=== PATIENT | female | born 1995 | race Caucasian/White ===

== ENCOUNTER 2016-12-22 02:36 | Emergency (ER) | payer MEDICAID ==
[2016-12-22] MEDS ORDERED: NACL 0.9% 1000 ML 1,000 ML IV ONE (03:46)
[2016-12-22 04:41] LABS: Alanine Aminotransferase 9 units/L (7-56); Albumin 4.3 g/dL (3.9-5); Albumin/Globulin Ratio 1.3 %; Alkaline Phosphatase 79 units/L (35-129); Anion Gap 15 mmol/L; Bilirubin,Total < 0.20 mg/dL (0.1-1.2); Blood Urea Nitrogen 12 mg/dL (7-17); Calcium 9.4 mg/dL (8.4-10.2); Carbon Dioxide 25 mmol/L (22-30); Chloride 103.2 mmol/L (98-107); Glucose 90 mg/dL (65-100); Lipase 36 units/L (13-60); Potassium 3.9 mmol/L (3.6-5.0); Sodium 139 mmol/L (137-145); Total Protein 7.5 g/dL (6.3-8.2)
[2016-12-22 04:59] LABS: Bacteria,Urine 1+ /HPF (Negative); Bilirubin,Urine NEG (Negative); Blood,Urine NEG (Negative); Ketones,Urine NEG (Negative); Leukocyte Esterase,Urine NEG (Negative); Mucus,Urine 2+ /HPF; Nitrite,Urine NEG (Negative); Urobilinogen,Urine < 2.0 mg/dL (<2.0)
[2016-12-22 05:01] LABS: Basophils % (Auto) 0.9 % (0.0-1.8); Eosinophils % (Auto) 4.3 % (0.0-4.3); Hematocrit 35.1 % (30.3-42.9); Hemoglobin 11.7 gm/dl (10.1-14.3); Mean Corpuscular HGB Conc 33 % (30-34); Mean Corpuscular Hemoglobin 29 pg (28-32); Mean Corpuscular Volume 86 fl (79-97); Platelet Count 238 K/mm3 (140-440); Red Blood Count 4.11 M/mm3 (3.65-5.03); Red Cell Distribution Width 14.3 % (13.2-15.2); White Blood Count 5.9 K/mm3 (4.5-11.0)
[2016-12-22 05:03] LABS: INR 0.98 (0.87-1.13)
[2016-12-22 05:04] LABS: Partial Thromboplastin Time 36.3 Sec. (24.2-36.6)
--- NOTE | 2016-12-22 07:51 | Emergency Department Report ---
HPI - General Chief Complaint: Abdominal Pain Time Seen by Provider: 12/22/16 07:34 - HPI HPI: Room 18 The patient is a 21-year-old female presenting with a chief complaint of right flank pain. The patient states for 1 week she has had a constant pain in the right flank described as pressure/sharp. Patient states the pain is waxed and waned but never resolved. Patient states the pain increases whenever she lifts objects. Patient denied dysuria or hematuria. Patient states yesterday she noticed some blood in her stool which increased today. Patient is episode of nausea and vomiting but denies coffee ground emesis or hematemesis. Patient denies rectal pain. Patient admits to subjective fever but denies melena. The patient currently gives her pain a score of 5-6/10 Location: [see above] Duration: One week Quality: Pressure/sharp Severity: 5-6/10 Modifying factors: [see above] Context: [see above] Mode of transportation: The patient drove herself to the emergency department and there are no visitors present ED Past Medical Hx - Past Medical History Previous Medical History?: Yes Hx Renal Disease: Yes (Kidney infection, resolved) - Surgical History Past Surgical History?: Yes Additional Surgical History: - Family History Family history: no significant - Social History Smoking Status: Former Smoker (none 5-6 years) Substance Use Type: None (denies illicit drug use) - Medications Home Medications: Home Medications Medication Instructions Recorded Confirmed Last Taken Type Sulfamethoxazole/Trimethoprim 1 each PO BID #14 tablet 09/07/15 Unknown Rx [Bactrim DS TAB] Cyclobenzaprine [Flexeril] 10 mg PO TID PRN #15 tablet 01/12/16 Unknown Rx Ibuprofen [Motrin] 800 mg PO Q8HR PRN #15 tablet 01/12/16 Unknown Rx Hydrocortisone [Anucort-HC SUPPOS] 25 mg RC BID #10 supp.rect 12/22/16 Unknown Rx traMADol [Ultram] 50 mg PO Q6HR PRN #10 tablet 12/22/16 Unknown Rx ED Review of Systems ROS: Stated complaint: RIGHT SIDE PAIN Other details as noted in HPI Comment: All other systems reviewed and negative Constitutional: denies: chills, fever Eyes: denies: eye pain, eye discharge, vision change ENT: denies: ear pain, throat pain Respiratory: denies: cough, shortness of breath, wheezing Cardiovascular: denies: chest pain, palpitations Endocrine: no symptoms reported Gastrointestinal: nausea, vomiting, hematochezia. denies: hematemesis Genitourinary: denies: urgency, dysuria, discharge Musculoskeletal: back pain. denies: joint swelling, arthralgia Skin: denies: rash, lesions Neurological: denies: headache, weakness, paresthesias Psychiatric: denies: anxiety, depression Hematological/Lymphatic: denies: easy bleeding, easy bruising Physical Exam - Physical Exam Vital Signs: Vital Signs 12/22/16 12/22/16 12/22/16 02:51 03:40 06:36 Temperature 98.8 F 98.8 F 98.0 F Pulse Rate 70 70 65 Respiratory 18 18 20 Rate Blood Pressure 118/70 Blood Pressure 118/70 107/62 [Right] O2 Sat by Pulse 97 99 Oximetry 12/22/16 06:37 Temperature Pulse Rate Respiratory 20 Rate Blood Pressure Blood Pressure [Right] O2 Sat by Pulse 99 Oximetry Physical Exam: GENERAL: The patient is well-developed well-nourished female lying on stretcher not appearing to be in acute distress. [] HEENT: Normocephalic. Atraumatic. Extraocular motions are intact. Patient has moist mucous membranes. NECK: Supple. Trachea midline CHEST/LUNGS: Clear to auscultation. There is no respiratory distress noted. HEART/CARDIOVASCULAR: Regular. There is no tachycardia. There is no gallop rub or murmur. ABDOMEN: Abdomen is soft, nontender. Patient has normal bowel sounds. There is no abdominal distention. SKIN: There is no rash. There is no edema. There is no diaphoresis. NEURO: The patient is awake, alert, and oriented. The patient is cooperative. The patient has normal speech MUSCULOSKELETAL: There is right CVA tenderness. There is no evidence of acute injury. RECTAL: Guaiac-negative. Paucity of stool ED Course Vital Signs 12/22/16 12/22/16 12/22/16 02:51 03:40 06:36 Temperature 98.8 F 98.8 F 98.0 F Pulse Rate 70 70 65 Respiratory 18 18 20 Rate Blood Pressure 118/70 Blood Pressure 118/70 107/62 [Right] O2 Sat by Pulse 97 99 Oximetry 12/22/16 06:37 Temperature Pulse Rate Respiratory 20 Rate Blood Pressure Blood Pressure [Right] O2 Sat by Pulse 99 Oximetry ED Medical Decision Making - Lab Data Result diagrams: 12/22/16 03:58 12/22/16 03:58 Laboratory Tests 12/22/16 12/22/16 12/22/16 03:55 03:55 03:58 WBC 5.9 RBC 4.11 Hgb 11.7 Hct 35.1 MCV 86 MCH 29 MCHC 33 RDW 14.3 Plt Count 238 Lymph % (Auto) 50.7 H [place] % (Auto) 7.5 H Eos % (Auto) 4.3 Baso % (Auto) 0.9 Lymph # 3.0 [place] # 0.4 Eos # 0.3 Baso # 0.1 Seg Neutrophils % 36.6 L Seg Neutrophils # 2.2 PT INR APTT Sodium Potassium Chloride Carbon Dioxide Anion Gap BUN Creatinine Estimated GFR BUN/Creatinine Ratio Glucose Calcium Total Bilirubin AST ALT Alkaline Phosphatase Total Protein Albumin Albumin/Globulin Ratio Lipase Urine Color Yellow Urine Turbidity Clear Urine pH 5.0 Ur Specific [place] 1.029 Urine Protein 30 mg/dl Urine Glucose (UA) Neg Urine Ketones Neg Urine Blood Neg Urine Nitrite Neg Urine Bilirubin Neg Urine Urobilinogen < 2.0 Ur Leukocyte Esterase Neg Urine WBC (Auto) 1.0 Urine RBC (Auto) 3.0 U Epithel Cells (Auto) 4.0 Urine Bacteria (Auto) 1+ Urine Mucus 2+ Urine HCG, Qual Negative Blood Type 12/22/16 12/22/16 12/22/16 03:58 03:58 04:03 WBC RBC Hgb Hct MCV MCH MCHC RDW Plt Count Lymph % (Auto) [place] % (Auto) Eos % (Auto) Baso % (Auto) Lymph # [place] # Eos # Baso # Seg Neutrophils % Seg Neutrophils # PT 13.5 INR 0.98 APTT 36.3 Sodium 139 Potassium 3.9 Chloride 103.2 Carbon Dioxide 25 Anion Gap 15 BUN 12 Creatinine 0.5 L Estimated GFR > 60 BUN/Creatinine Ratio 24.00 Glucose 90 Calcium 9.4 Total Bilirubin < 0.20 AST 14 ALT 9 Alkaline Phosphatase 79 Total Protein 7.5 Albumin 4.3 Albumin/Globulin Ratio 1.3 Lipase 36 Urine Color Urine Turbidity Urine pH Ur Specific [place] Urine Protein Urine Glucose (UA) Urine Ketones Urine Blood Urine Nitrite Urine Bilirubin Urine Urobilinogen Ur Leukocyte Esterase Urine WBC (Auto) Urine RBC (Auto) U Epithel Cells (Auto) Urine Bacteria (Auto) Urine Mucus Urine HCG, Qual Blood Type O POSITIVE - Radiology Data Radiology results: report reviewed (CT abdomen and pelvis), image reviewed (CT abdomen and pelvis) CT abdomen and pelvis (read by radiologist)-no acute significant CT abnormality on this unenhanced exam, though various other findings, including a distal esophageal thickening, contracted gallbladder, questionable tiny right renal nonobstructing calculus and presumed physiologic small pelvic free fluid noted. - Differential Diagnosis renal colic, biliary colic, pyelonephritis, colitis, Critical care attestation.: If time is entered above; I have spent that time in minutes in the direct care of this critically ill patient, excluding procedure time. ED Disposition Clinical Impression: Right flank pain, Hematochezia Disposition: TO HOME OR SELFCARE Is pt being admited?: No Does the pt Need Aspirin: No Condition: Stable Instructions: Abdominal Pain (ED) Additional Instructions: Return to the emergency department immediately should you develop worsening symptoms, fever, inability to tolerate food or liquid or any other concerns. 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 Please follow-up with him for further evaluation) Time of Disposition: 09:05
--- NOTE | 2016-12-22 08:44 | Cat Scan Report ---
CT ABDOMEN AND PELVIS WITHOUT CONTRAST INDICATION: Right flank pain. COMPARISON: None similar. FINDINGS: Noncontrast abdomen and pelvis CT performed. LUNG BASES: Nonspecific distal esophageal wall prominence/thickening, not excluded for gastroesophageal reflux and/or hiatal hernia, amongst others. ABDOMEN: Please note that sensitivity to detect small visceral lesions is limited due to the absence of intravenous or oral contrast. Contracted gallbladder with exaggerated wall thickness. Left hepatic lobe tip touches the spleen in the left upper quadrant. Otherwise grossly unremarkable unenhanced liver, spleen, somewhat diffusely prominent pancreas, adrenals, aorta, IVC and kidneys. A tiny, 1 mm right renal calcification questioned, axial image 58, series 2. Nonopacified GI tract evaluation limited, though grossly nonobstructive. Normal appendix. Ascending colon stool. PELVIS: Small deep right hemipelvic free fluid, presumed physiologic in a patient of this age. Uterus and adnexa/ovaries not well delineated, though grossly within normal limits as also non-opacified urinary bladder and the rectosigmoid. Bilateral SI joint sclerosis along the iliac aspects noted. CONCLUSION: No acute significant CT abnormality on this unenhanced exam, though various other findings, including distal esophageal thickening, contracted gallbladder, questionable tiny right renal nonobstructing calculus and presumed physiologic small pelvic free fluid noted, amongst others, as above. Please correlate. Thank you for the opportunity to participate in this patient's care.
[2016-12-22 09:30] VITALS: BP 108/58
== END 2016-12-22 09:29 | disposition home or self-care (01) ==
LOC: ED 02:36
DX: R10.9 Unspecified abdominal pain (principal); K92.1 Melena; Z87.891 Personal history of nicotine dependence
CPT/HCPCS: 36415; 74176; 80053; 81001; 81025; 82271; 83690; 85025; 85610; 85730; 86850; 86900; 86901; 93005; 93010

== ENCOUNTER → 2017-03-17 10:10 | Emergency (ER) | payer MEDICAID | END | disposition left against medical advice (07) | LOC: ED 10:10 | DX: R10.9 Unspecified abdominal pain (principal); Z53.21 Procedure and treatment not carried out due to patient leaving prior to being seen by health care provider ==